=== PATIENT | male | born 1950 | race African-American/Black ===

== ENCOUNTER 2016-06-29 20:49 | Emergency (ER) | payer MEDICARE, BC ==
[~2016-06-29] VITALS: Ht 180.3 cm; Wt 87.6 kg
[~2016-06-29 20:49] MED LIST: ASPI81 PO
[2016-06-29 20:55] VITALS: BP 125/81; PULSE 104; RESP 16; TEMP 99; O2SAT 97
--- NOTE | 2016-06-29 21:38 | PD ---
HPI Chief Complaint: Cold / Flu Symptoms Time Seen by Provider: 21:38 Travel History International Travel<30 days: No Contact w/Intl Traveler<30days: No Traveled to known affect area: No History of Present Illness HPI 66-year-old male presents to the ED for evaluation of 4 day history of redness, scratchiness, tearing of bilateral eyes and sinus congestion and nonproductive cough. Patient denies fever, chills vision changes, headache, dizziness, ear pain, chest pain, shortness of breath, abdominal pain, nausea or vomiting. 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 Treated at home with warm compresses applied to the eye with no improvement of symptoms. PFSH Past Medical History Cardiovascular Problems: Yes (HIGH CHOLESTEROL) High Cholesterol: Yes Diabetes: No Hepatitis: No Hiatal Hernia: No Hypertension: Yes (HX HIGH BLOOD PRESSURE) Thyroid Disease: No Tetanus Vaccination: > 5 Years Influenza Vaccination: No Past Surgical History Abdominal Surgery: Yes (CHOLECYSTECTOMY) Cholecystectomy: Yes Genitourinary Surgery: Yes (PROSTATE, URETERAL STENTS) Joint Replacement: Yes (ROTATOR CUFF RT) Social History Alcohol Use: Yes (OCC) Tobacco Use: Yes (1 PPD) Substance Use: No Allergies-Medications (Allergen,Severity, Reaction): Coded Allergies: No Known Allergies (Unverified , 06/29/16) Reported Meds & Prescriptions Reported Meds & Active Scripts Active Tessalon Perles (Benzonatate) 100 Mg Cap 200 Mg PO TID PRN Polymyxin B-Trimethoprim Opth (Trimethoprim-Polymyxin B Opth) 10,000-0.1 Unit/Ml -% Soln 1 Drop EACH EYE QID 5 Days Review of Systems Except as stated in HPI: all other systems reviewed are Neg Physical Exam Narrative GENERAL: Well-nourished, well-developed black male in no acute distress. SKIN: Warm and dry. HEAD: Normocephalic. Atraumatic. EYES: No scleral icterus. PERRLA. EOMI. Bilateral arcus senilis. Eyes bilaterally injected with copious tearing and mucopurulent drainage. Palpebral surfaces bilaterally erythematous. ENT: Pearly eli tympanic membranes bilaterally. Nasal mucosa is moist. Oropharynx mild posterior erythema erythema. No edema or exudate. NECK: Supple, trachea midline. No JVD or lymphadenopathy. CARDIOVASCULAR: Regular rate and rhythm without murmurs, gallops, or rubs. 2+ DP and radial pulses bilaterally. RESPIRATORY: Breath sounds clear and equal bilaterally. No accessory muscle use. GASTROINTESTINAL: Abdomen soft, non-tender, nondistended. + Bowel sounds MUSCULOSKELETAL: No cyanosis, or edema. Patient is observed to walk with a normal gait. BACK: Nontender without obvious deformity. No CVA tenderness. Data Data Last Documented VS Vital Signs Date Time Temp Pulse Resp B/P Pulse Ox O2 Delivery O2 Flow Rate FiO2 06/29/16 21:25 18 97 Room Air 06/29/16 20:55 99.0 104 125/81 MDM Medical Decision Making Medical Screen Exam Complete: Yes Emergency Medical Condition: Yes Differential Diagnosis Viral conjunctivitis versus allergic conjunctivitis versus bacterial conjunctivitis versus viral syndrome versus other Narrative Course 66-year-old male presents to the ED for evaluation of 4 day history of redness, scratchiness, tearing of bilateral eyes and sinus congestion and nonproductive cough. Patient denies fever, chills vision changes, headache, dizziness, ear pain, chest pain, shortness of breath, abdominal pain, nausea or vomiting. 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 Treated at home with warm compresses applied to the eye with no improvement of symptoms. Vitals reviewed. Physical exam consistent with bilateral bacterial conjunctivitis. Posterior oropharynx mildly erythematous. Chest clear to auscultation bilaterally. Patient was prescribed temazepam, polymyxin B eyedrops 4 times a day 5 days. He was also prescribed Tessalon Perles 3 times a day when necessary cough. He is instructed to administer the medication as prescribed, continue with symptomatic treatment, follow up with his primary care provider as planned this week. He indicated understanding of instructions and is amenable to plan of care. He is stable and discharged home. Diagnosis Primary Impression: Acute bacterial conjunctivitis of both eyes Additional Impression: Cough Referrals: [facility] Primary Care Physician Patient Instructions: Acute Cough (ED), Conjunctivitis (ED), General Instructions Additional Instructions: Apply ophthalmic drops 1 drop in each eye 4 times a day for the next 5 days. DO NOT EXCEED MORE THAN 6 DROPS PER DAY. Take Tessalon Perles up to 3 times a day as needed to see with cough. Follow-up with the primary care provider this week as planned. Return to the ED for worsening of symptoms or any urgent or emergent medical condition. Med/Other Pt SpecificInfo: Prescription(s) given Scripts Benzonatate (Tessalon Perles)100 Mg [id number] Mg PO TID PRN (COUGH) #12 CAP Ref 0 Prov:Alexandru Agrawal MD 06/29/16 Trimethoprim-Polymyxin B Opth (Polymyxin B-Trimethoprim Opth)10,000-0.1 Unit/Ml- % Soln1 Drop EACH EYE QID 5 Days Prov:Alexandru Agrawal MD 06/29/16 Disposition: 01 DISCHARGE HOME Condition: Stable Kalpana Barnard Jun 29, 2016 21:38
[2016-06-29] MEDS ORDERED: TRIMSOL3 EACH EYE (21:53)
[2016-06-29] MEDS ORDERED: BENZ100 PO (21:53)
== END 2016-06-29 22:08 | disposition home or self-care (01) ==
LOC: PHEFT 20:49
DX: H10.33 Unspecified acute conjunctivitis, bilateral (principal); R05 Cough; E78.00 Pure hypercholesterolemia, unspecified; I10 Essential (primary) hypertension; F17.210 Nicotine dependence, cigarettes, uncomplicated
CPT/HCPCS: 99283